=== PATIENT | female | born 1995 | race Caucasian/White ===

== ENCOUNTER 2017-01-29 09:21 | Emergency (ER) | payer MEDICAID ==
[~2017-01-29] VITALS: Ht 162.6 cm; Wt 65.0 kg
[2017-01-29] MEDS ORDERED: KEPP500 PO (09:25)
[2017-01-29 09:51] LABS: BASOPHILS % 0.6 % (0.0-2.0); EOSINOPHILS % 2.2 % (0.0-5.0); HEMATOCRIT. 39.1 % (36.0-48.0); HEMOGLOBIN. 13.2 g/dL (12.0-16.0); MEAN CORPUSCULAR HEMOGLOBIN 31.3 pg (28.0-32.0); MEAN CORPUSCULAR VOLUME 92.4 fL (81.0-99.0); MEAN PLATELET VOLUME 8.3 fl (7.4-10.4); MONOCYTES % 8.9 % (2.0-8.0); NEUTROPHILS % 66.3 % (40.0-76.0); PLATELET 243 x1000/uL (130-400); RED BLOOD CELL COUNT 4.23 mill/uL (4.2-5.4); RED CELL DISTRIBUTION WIDTH 12.4 % (11.6-14.6)
[2017-01-29 09:57] LABS: CHLORIDE 107 mEq/L (98-107)
[2017-01-29 10:04] LABS: CARBON DIOXIDE 23 mEq/L (21-32); ETHANOL BLOOD < 10 mg/dL
[2017-01-29 11:53] LABS: GLUCOSE URINE NEGATIVE (NEGATIVE); KETONES URINE 1+ (NEGATIVE); LEUKOCYTE ESTERASE URINE 2+ (NEGATIVE); NITRITE URINE POSITIVE (NEGATIVE); OCCULT BLOOD URINE 3+ (NEGATIVE); PH URINE 5.5 (4.5-8.0); PROTEIN URINE 2+ (NEGATIVE); SPECIFIC GRAVITY URINE 1.023 (1.005-1.030)
[2017-01-29 12:11] LABS: CLARITY URINE CLOUDY (CLEAR); COLOR URINE RED (YELLOW)
[2017-01-29 12:40] LABS: *AMPHETAMINES SCREEN URINE NEGATIVE (NEGATIVE); *BARBITURATES SCREEN URINE NEGATIVE (NEGATIVE); *BENZODIAZEPINES SCREEN URINE NEGATIVE (NEGATIVE); *COCAINE SCREEN URINE NEGATIVE (NEGATIVE); CANNABINOID URINE SCREEN NEGATIVE (NEGATIVE); METHADONE URINE SCREEN NEGATIVE (NEGATIVE); OPIATES URINE SCREEN NEGATIVE (NEGATIVE); PHENCYCLIDINE URINE SCREEN NEGATIVE (NEGATIVE)
[2017-01-29 12:54] VITALS: BP 106/70
== END 2017-01-29 13:02 | disposition home or self-care (01) ==
LOC: ER 10:09
DX: R56.9 Unspecified convulsions (principal); N39.0 Urinary tract infection, site not specified
CPT/HCPCS: 36415; 80053; 80305; 81001; 85025; 99284; G0482; Z7610